=== PATIENT | female | born 1960 ===

== ENCOUNTER 2019-04-11 10:12 | Day surgery (SDC) | payer OTHER ==
[~2019-04-11 10:12] MED LIST: ACETAMINOPHEN 1,000 MG/100 ML BTL IVPB ONE
[2019-04-11] MEDS ORDERED: PROPOFOL 10 MG/ML VIAL IV ONE (10:13)
[2019-04-11] MEDS ORDERED: MIDAZOLAM HCL 2MG/2ML VIAL IV ONE (10:13)
[2019-04-11] MEDS ORDERED: LIDOCAINE 2% MDV (20MG/ML) 20ML VIAL IV ONE (10:13)
[2019-04-11] MEDS ORDERED: RINGERS SOLUTION,LACTATED 1,000 ML IV ONE (11:00)
[2019-04-11] MEDS ORDERED: LIDOCAINE 1% MPF 100MG/10ML STERILE-PAK AMPULE SQ ONE (12:57)
--- NOTE | 2019-04-12 14:35 | Operative Note ---
DATE OF SURGERY: 04/11/2019 SURGEON: Anant Sinclair D.O. REFERRING PHYSICIAN: Rogelio Fragoso M.D. PREOPERATIVE DIAGNOSIS: TRIGGER THUMB ON THE RIGHT. POSTOPERATIVE DIAGNOSIS: TRIGGER THUMB ON THE RIGHT. OPERATION: TENOTOMY A1 KATHI RIGHT THUMB USING 3.5 LOUPE MAGNIFICATION. This 58-year-old female was taken to the Operating Room and placed in the supine position on the operating room table. Assisted local anesthesia was used. 1% Xylocaine plain was used as a local anesthetic which was injected near the flexor crease of the metacarpal phalangeal joint of the right thumb. After prepping and draping in the usual sterile fashion the tourniquet was inflated to 250 mmHg and a transverse incision was made in the flexor crease of the metacarpal phalangeal joint. Dissection was carried down through the skin and subcutaneous tissue. The proximal edge of the A1 kathi was easily identified. The FPL demonstrated some thickening and tenosynovitis, but no disruption of the tendon fibers was identified. The kathi was incised under direct vision from its proximal to its distal margin. Once this had been freed up the tendon was taken through the range of motion and no impingement upon the A1 kathi was identified. The wound was irrigated, it was then closed with interrupted 6-0 nylon suture, sterile dressings were applied, and the patient was taken to the Recovery Room in satisfactory condition. GROSS PATHOLOGY: This patient demonstrated some thickening enlargement of the FPL of the right thumb constricting motion of the tendon throughout its full excursion. JOB NUMBER: [id number] [facility]
== END 2019-04-11 13:45 | disposition home or self-care (01) ==
LOC: SUR 10:12
PROVIDERS: ATTEND Orthopaedic Surgery
DX: M65.311 Trigger thumb, right thumb (principal); I10 Essential (primary) hypertension; F17.210 Nicotine dependence, cigarettes, uncomplicated
CPT/HCPCS: J3490; J7120